=== PATIENT | female | born 1990 | race Caucasian/White ===

== ENCOUNTER 2020-06-27 10:29 | Outpatient (CLI) | payer BC ==
[2020-06-27 11:19] VITALS: BP 138/92; PULSE 109; RESP 16; TEMP 99.5
[2020-06-27 11:23] LABS: Appearance,Urine Cloudy (Clear); Bacteria,Urine Rare /hpf; Bilirubin,Urine Negative (Negative); Blood,Urine Negative (Negative); Color,Urine Yellow; Glucose,Urine (UA) Negative (Negative); Ketones,Urine Negative (Negative); Leukocyte Esterase,Urine Large (Negative); Mucus,Urine Rare /hpf; Nitrite,Urine Negative (Negative); Protein,Urine Negative (Negative); Specific Gravity,Urine 1.012 (1.001-1.035); Squamous Epithelial Cell,Urine 2 /hpf (0-4); Urobilinogen,Urine <2.0 mg/dL (<2.0); WBC,Urine 6 /hpf (0-5)
[2020-06-27 11:53] LABS: Basophils % (A) 0 %; Eosinophils # (A) 0.3 k/uL (0-0.7); Eosinophils % (A) 2 %; HCT 32.4 % (34.0-46.0); HGB 10.9 gm/dL (11.4-16.0); Lymphocytes # (A) 1.7 k/uL (1.0-4.8); Lymphocytes % (A) 13 %; MCH 31.1 pg (25.0-35.0); MCHC 33.7 g/dL (31.0-37.0); MCV 92.2 fL (80.0-100.0); Mean Platelet Volume 9.3; Monocytes # (A) 0.4 k/uL (0-1.0); Monocytes % (A) 3 %; Neutrophils # (A) 10.3 k/uL (1.3-7.7); Neutrophils % (A) 80 %; Platelet Count 182 k/uL (150-450); RBC 3.51 m/uL (3.80-5.40); RDW 13.6 % (11.5-15.5); WBC 12.9 k/uL (3.8-10.6)
[2020-06-27 12:17] LABS: ALT 11 U/L (4-34); AST 15 U/L (14-36); African American GFR (CKD) >90 (>60 ml/min/1.73 sqM); Blood Urea Nitrogen 5 mg/dL (7-17); LDH 293 U/L (313-618); Non-African American GFR(CKD) >90 (>60 ml/min/1.73 sqM); Uric Acid 4.5 mg/dL (3.7-7.4)
[2020-06-27 13:16] LABS: Creatinine,Urine Random 84.1 mg/dL; Protein/Creatinine Ratio,Urine 0.321
--- NOTE | 2020-08-15 15:07 | P.MSEPDOC ---
Presenting Problems - Arrival Data Date of Arrival on Unit: 06/27/20 Time of Arrival on Unit: 10:29 Mode of Transport: Ambulatory - Complaint OB-Reason for Admission/Chief Complaint: PIH Medical History - Information : 1 Para: 0 Term: 0 : 0 Abortions: Spontaneous or Elective: 0 Number of Living Children: 0 - Gestational Age Gestational Age by DEIRDRE (wks/days): 36 Weeks and 0 Days - History Complications: Chronic HTN Review of Systems - Review of Systems Constitutional: No problems Breast: No problems ENT: No problems Cardiovascular: No problems Respiratory: No problems Gastrointestinal: No problems Genitourinary: No problems Musculoskeletal: No problems Neurological: No problems Skin: No problems Vital Signs - Temperature Temperature: 99.5 F Temperature Source: Temporal Artery Scan - Pulse Right Sitting Brachial Pulse Rate: 109 Pulse Assessment Method: Automatic Cuff - Respirations Respiratory Rate: 16 Oxygen Delivery Method: Room Air O2 Sat by Pulse Oximetry: 97 - Blood Pressure Right Arm Sitting Blood Pressure: 138/92 Blood Pressure Mean: 107 Blood Pressure Source: Automatic Cuff Medical Screen Scoring (Pre) - Cervical Exam Dilation: Exam Deferred Effacement: Exam Deferred Membranes: Intact - Uterine Contractions Frequency: N/A Duration: N/A Intensity: N/A - Maternal Vital Signs Maternal Temperature: N/A Maternal Blood Pressure: Diastolic > 89 = 1 Signs of Preeclampsia: N/A Maternal Respirations: N/A - Maternal Trauma Maternal Trauma: N/A - Assessment - Baby A Baseline FHR: 125 Heart Rate - NICHD Category: Category I (Normal) = 0 NST: Reactive Position: N/A Station: N/A - Total Score - Baby A Total Score - Baby A: 1 - Total Score - Baby B Total Score - Baby B: 1 - Total Score - Baby C Total Score - Baby C: 1 - Level of Risk - Baby A Level of Risk - Baby A: Low (0-5) - Level of Risk - Baby B Level of Risk - Baby B: Low (0-5) - Level of Risk - Baby C Level of Risk - Baby C: Low (0-5) Disposition - Disposition OB Disposition: Triage I agree with the RN Medical Screening Exam: Yes Physician's MSE Comment: Patient was not seen or examined by myself Case reviewed; plan agreed upon as documented in EMR&OBIX.: Yes Diagnosis: GESTATIONAL HTN W/O SIGNIFICANT PROTEINURIA, THIRD TRIMESTER
== END 2020-06-27 13:38 | disposition home or self-care (01) ==
LOC: FBPOP 10:29
PROVIDERS: ATTEND Obstetrics & Gynecology Obstetrics
DX: O13.3 Gestational [pregnancy-induced] hypertension without significant proteinuria, third trimester (principal); Z3A.36 36 weeks gestation of pregnancy
CPT/HCPCS: 59025; 81001; 82565; 82570; 83615; 84156; 84450; 84460; 84520; 84550; 85025

== ENCOUNTER 2020-07-03 15:19 | Inpatient (IN) | payer BC ==
[2020-07-03 15:58] LABS: Basophils # (A) 0.1 k/uL (0-0.2); Basophils % (A) 1 %; Eosinophils # (A) 0.4 k/uL (0-0.7); Eosinophils % (A) 2 %; HCT 34.1 % (34.0-46.0); HGB 11.9 gm/dL (11.4-16.0); Lymphocytes # (A) 1.8 k/uL (1.0-4.8); Lymphocytes % (A) 12 %; MCH 31.8 pg (25.0-35.0); MCHC 34.9 g/dL (31.0-37.0); Mean Platelet Volume 10.3; Monocytes # (A) 0.6 k/uL (0-1.0); Monocytes % (A) 4 %; Neutrophils % (A) 80 %; Platelet Count 176 k/uL (150-450); RBC 3.75 m/uL (3.80-5.40)
[2020-07-03 16:06] LABS: ALT 9 U/L (4-34); AST 14 U/L (14-36); African American GFR (CKD) >90 (>60 ml/min/1.73 sqM); Blood Urea Nitrogen 6 mg/dL (7-17); LDH 295 U/L (313-618); Non-African American GFR(CKD) >90 (>60 ml/min/1.73 sqM); Uric Acid 4.2 mg/dL (3.7-7.4)
[2020-07-03 16:17] LABS: INR 0.9 (<1.2); Prothrombin Time 9.6 sec (9.0-12.0)
[2020-07-03 16:19] LABS: Partial Thromboplastin Time 21.8 sec (22.0-30.0)
[2020-07-03 16:31] LABS: Protein/Creatinine Ratio,Urine 0.377
[2020-07-03] MEDS ORDERED: miSOPROStoL 25 MCG TAB VAGINAL PRN (16:46)
[2020-07-03 17:15] LABS: Appearance,Urine Cloudy (Clear); Bacteria,Urine Rare /hpf; Bilirubin,Urine Negative (Negative); Blood,Urine Trace (Negative); Color,Urine Light Yellow; Glucose,Urine (UA) Negative (Negative); Hyaline Casts,Urine 1 /lpf (0-2); Ketones,Urine Negative (Negative); Leukocyte Esterase,Urine Large (Negative); Mucus,Urine Rare /hpf; Nitrite,Urine Negative (Negative); PH, Urine 6.5 (5.0-8.0); Protein,Urine Trace (Negative); RBC,Urine 9 /hpf (0-5); Specific Gravity,Urine 1.011 (1.001-1.035); Squamous Epithelial Cell,Urine 4 /hpf (0-4); Urobilinogen,Urine <2.0 mg/dL (<2.0); WBC,Urine 18 /hpf (0-5)
[2020-07-03] MEDS ORDERED: DINOPROSTONE 10 MG INSERT.ER VAGINAL ONE (17:15)
--- NOTE | 2020-07-03 17:38 | P.HPOB ---
History of Present Illness H&P Date: 07/03/20 Chief Complaint: IUP @ 36 6/7, chronic htn This is a 29-year-old 1 para 0 at 36-6/7 weeks that presented to labor and delivery for routine care. Blood pressure in the office was noted to be 140s over 90s. Patient has been receiving routine care with a diagnosis of chronic hypertension. Patient has been followed closely with testing and growth ultrasounds. Last growth ultrasound was done on June 26 revealing a fetus of 6 lbs. 11 oz. Patient did have preeclampsia labs done that were normal in nature on 06/30 exception being her urine protein creatinine ratio was elevated 0.3. She has been taking labetalol 200 mg twice daily throughout the . Patient denies headaches or abdominal pain. She notes good movement and notes an occasional contraction. She denies vaginal bleeding or loss of fluid at this time. On bloodwork this patient has a blood type of O+, rubella status nonimmune, hepatitis B surface antigen negative, RPR nonreactive, HIV negative, she is group beta strep positive. Review of Systems Constitutional: Denies chills, Denies fatigue, Denies fever Ears, nose, mouth and throat: Denies headache Cardiovascular: Reports leg edema Respiratory: Denies dyspnea Gastrointestinal: Denies constipation, Denies diarrhea, Denies nausea, Denies vomiting Genitourinary: Reports Past Medical History History of Any Multi-Drug Resistant Organisms: None Reported Smoking Status: Never smoker Medications and Allergies Home Medications Medication Instructions Recorded Confirmed Type Labetalol [Trandate] 200 mg PO BID 06/27/20 07/03/20 History Loratadine [Claritin] 10 mg PO DAILY 06/27/20 07/03/20 History Pnv No.95/Ferrous Fum/Folic AC 1 each PO DAILY 07/03/20 07/03/20 History [ Multivitamin Tablet] Allergies Allergy/AdvReac Type Severity Reaction Status Date / Time No Known Allergies Allergy Verified 07/03/20 15:26 Exam Osteopathic Statement: *. No significant issues noted on an osteopathic structural exam other than those noted in the History and Physical/Consult. Vital Signs Temp Pulse Resp BP Pulse Ox 07/03/20 15:35 97.9 F 97 15 138/95 98 Intake and Output 07/03/20 07/03/20 07/03/20 06:59 14:59 22:59 Other: Weight 90.174 kg Targeted physical exam is performed in this date and transit operator a well-nourished well-developed female in no acute distress, breathing is noted to be nonlabored, heart has regular rate and rhythm, abdomen is gravid and appropriate for gestational age, on cervical exam she is / Cervidil is placed at this time. heart tones returned be category 1 and she is mani irregularly. Results Result Diagrams: 07/03/20 15:46 07/03/20 15:46 Abnormal Lab Results - Last 24 Hours (Table) 07/03/20 07/03/20 07/03/20 Range/Units 15:46 15:46 15:46 WBC 15.0 H (3.8-10.6) k/uL RBC 3.75 L (3.80-5.40) m/uL Neutrophils # 12.0 H (1.3-7.7) k/uL APTT 21.8 L (22.0-30.0) sec Fibrinogen 604 H (200-500) mg/dL BUN 6 L (7-17) mg/dL Lactate Dehydrogenase 295 L (313-618) U/L Urine Appearance (Clear) Urine Protein (Negative) Urine Blood (Negative) Ur Leukocyte Esterase (Negative) Urine RBC (0-5) /hpf Urine WBC (0-5) /hpf Urine Bacteria (None) /hpf Urine Mucus (None) /hpf 07/03/20 Range/Units 16:16 WBC (3.8-10.6) k/uL RBC (3.80-5.40) m/uL Neutrophils # (1.3-7.7) k/uL APTT (22.0-30.0) sec Fibrinogen (200-500) mg/dL BUN (7-17) mg/dL Lactate Dehydrogenase (313-618) U/L Urine Appearance Cloudy H (Clear) Urine Protein Trace H (Negative) Urine Blood Trace H (Negative) Ur Leukocyte Esterase Large H (Negative) Urine RBC 9 H (0-5) /hpf Urine WBC 18 H (0-5) /hpf Urine Bacteria Rare H (None) /hpf Urine Mucus Rare H (None) /hpf Assessment and Plan (1) 36 to 37 weeks gestation of Current Visit: Yes Status: Acute Code(s): BYY2886 - SNOMED Code(s): 768528336 (2) Chronic hypertension affecting Current Visit: Yes Status: Acute Code(s): O10.919 - UNSP PRE-EXISTING HTN COMP , UNSP TRIMESTER SNOMED Code(s): 31525647 (3) Positive GBS test Current Visit: Yes Status: Acute Code(s): B95.1 - STREPTOCOCCUS, GROUP B, CAUSING DISEASES CLASSD ELSR SNOMED Code(s): 848091092 Plan: This is a 29-year-old 1 para 0 with known chronic hypertension that presents to labor and delivery at 36-6/7 weeks secondary to elevated blood pressures noted in the office. Patient denies symptoms of preeclampsia. Negative preeclampsia labs are appreciated with an elevated protein creatinine ratio of 0.3. Patient is admitted for Cervidil induction of labor. Patient is counseled on options of analgesia including Stadol and epidural. we'll plan to hold Cervidil at 5 AM, and start Pitocin soon afterwards. Patient states understanding of the plan and all questions are answered. She will continue to take her oral labetalol throughout labor.
[2020-07-03] MEDS: BUTORPHANOL 1 MG/ML 1 ML VIAL IV PRN (22:24)
[2020-07-03] MEDS: LABETALOL 200 MG TAB PO SCH (22:28)
[2020-07-03] MEDS: LACTATED RINGERS 1,000 ML IV SCH (22:38)
[2020-07-04] MEDS ORDERED: AMPICILLIN 2,000 MG in SODIUM CHLORIDE 0.9% 100 ML IVPB ONE ×2
[2020-07-04] MEDS: BUTORPHANOL 1 MG/ML 1 ML VIAL IV PRN (01:35)
[2020-07-04] MEDS ORDERED: TERBUTALINE 1 MG/ML VIAL SQ PRN (03:39)
[2020-07-04] MEDS ORDERED: OXYTOCIN 10 UNIT/ML 1 ML VIAL IM PRN (03:39)
[2020-07-04] MEDS ORDERED: LIDOCAINE 0.5% (PF) 5 MG/ML (50 ML SDV) SQ PRN (03:39)
[2020-07-04] MEDS ORDERED: CARBOPROST TROMETHAMINE 250 MCG/ML 1 ML AMP IM PRN (03:39)
[2020-07-04] MEDS ORDERED: METHYLERGONOVINE 0.2 MG/ML 1 ML AMP IM PRN (03:39)
[2020-07-04] MEDS ORDERED: LACTATED RINGERS 1,000 ML IV SCH (03:45)
[2020-07-04] MEDS: AMPICILLIN 1,000 MG in SODIUM CHLORIDE 0.9% 50 ML IVPB SCH ×4 (04:04→18:16)
[2020-07-04] MEDS: OXYTOCIN 30 UNITS/500 ML NS 30 UNIT in SALINE 1 500ML.BAG IV SCH ×2 (06:20→17:59)
[2020-07-04] MEDS: LACTATED RINGERS 1,000 ML IV SCH ×5 (07:54→23:37)
[2020-07-04] MEDS: LABETALOL 200 MG TAB PO SCH ×2 (08:59→20:05)
[2020-07-04] MEDS: PRENATAL VIT-IRON-FOLIC ACID 1 EACH CAP PO SCH (11:32)
[2020-07-04] MEDS ORDERED: CITRIC ACID-SODIUM CITRATE 15 ML CUP PO ONE (14:55)
[2020-07-04] MEDS ORDERED: OXYTOCIN 10 UNIT/ML 1 ML VIAL ONE (15:14)
[2020-07-04] MEDS ORDERED: KETOROLAC 15 MG/ML 1 ML VIAL ONE (15:14)
[2020-07-04] MEDS ORDERED: ONDANSETRON 4 MG/2 ML VIAL ONE (15:14)
[2020-07-04] MEDS ORDERED: MORPHINE SULFATE (PF) 0.3 MG/0.3 ML SYR ONE (15:14)
[2020-07-04] MEDS ORDERED: DEXAMETHASONE SOD PHOSPHATE 10 MG/ML 1 ML VIAL ONE (15:14)
[2020-07-04] MEDS ORDERED: diphenhydrAMINE 50 MG/ML 1 ML VIAL ONE (15:14)
[2020-07-04] MEDS ORDERED: NALOXONE 0.4 MG/ML 1 ML VIAL IV PRN ×2 (15:58→16:12)
[2020-07-04] MEDS ORDERED: HYDROmorphone 0.5 MG/0.5 ML SYRINGE IVP PRN (15:58)
[2020-07-04] MEDS ORDERED: KETOROLAC 15 MG/ML 1 ML VIAL IVP PRN (15:58)
[2020-07-04] MEDS ORDERED: ONDANSETRON 4 MG/2 ML VIAL IVP PRN ×2 (15:58→16:12)
[2020-07-04] MEDS ORDERED: diphenhydrAMINE 50 MG/ML 1 ML VIAL IVP PRN ×3 (15:58→16:12)
[2020-07-04] MEDS ORDERED: ACETAMINOPHEN IV (For NPO) 1,000 MG in EMPTY BAG 1 BAG IVPB ONE (16:12)
[2020-07-04] MEDS ORDERED: HYDROcodone/APAP 5-325MG 1 EACH TAB PO PRN (16:12)
[2020-07-04] MEDS ORDERED: diphenhydrAMINE 25 MG CAP PO PRN (16:12)
[2020-07-04] MEDS ORDERED: diphenhydrAMINE 50 MG CAP PO PRN (16:12)
[2020-07-04] MEDS ORDERED: ZOLPIDEM 5 MG TAB PO PRN (16:12)
[2020-07-04] MEDS ORDERED: METOCLOPRAMIDE 5 MG/ML 2 ML VIAL IVP PRN (16:12)
[2020-07-04] MEDS ORDERED: SIMETHICONE 80 MG CHEWABLE PO PRN (16:12)
[2020-07-04] MEDS ORDERED: ACETAMINOPHEN TAB 325 MG TAB PO PRN (16:12)
--- NOTE | 2020-07-04 16:12 | P.OP ---
Date of Procedure: 07/04/20 Preoperative Diagnosis: IUP at 37-0/7 weeks, chronic hypertension, arrest of descent and dilation Postoperative Diagnosis: Same Procedure(s) Performed: Primary low transverse section Anesthesia: spinal Surgeon: Carolina Krishna Dipper Machine Operator #1: Lady Morin Estimated Blood Loss (ml): 200 IV fluids (ml): 500 Urine output (ml): 100 Pathology: other (Placenta) Condition: stable Disposition: observation Indications for Procedure: This 29-year-old 1 para 0 at 37 0/7 weeks presented to labor and delivery for induction of labor secondary to chronic hypertension. Patient's blood pressures were noted to be 140s 150s over 90s to 100s. Patient has been labetalol throughout this . Patient made minimal change with Cervidil overnight and Pitocin augmentation of labor was begun. Patient did not make cervical change throughout the day, amniotomy was performed in the morning with noted clear fluid. No descent into the pelvis despite Pitocin augmentation of labor this morning. Around 1400 patient elected primary . Operative Findings: Arcuate shaped uterus, liveborn male infant delivered via vacuum assist at 1539, weight of 6 lbs. 9 oz. Description of Procedure: Patient was taken to the operating suite where spinal anesthesia was found to be adequate by the anesthesia department. She was then prepped and draped in normal sterile fashion in the dorsal supine position. A Pfannenstiel skin incision was made with the scalpel and carried through the underlying layer of fascia. The fascia was then incised in the midline and extended laterally. The superior aspect the fascial incision was then grasped leatha clamps, elevated and underlying rectus muscle was dissected off sharply. The inferior aspect the fas cial incision was then grasped leatha clamps, elevated and underlying rectus muscles dissected off sharply. Rectus muscles were in the midline the peritoneum was identified and entered. The bladder blade was inserted into the pelvis. The vesicouterine peritoneum was identified and a bladder flap was created using sharp and blunt dissection. A scalpel was used to make a hysterotomy incision the uterus was entered and the fetus was noted to be in an occiput transverse presentation, vacuum assist was used to deliver fetus the umbilical cord was doubly clamped and cut and the was handed off to awaiting RN. Cord blood was then taken. The placenta was then delivered manually intact with three-vessel cord being noted. The uterus is noted to be arcuate in shape. The uterus was delivered from the abdomen. The uterine incision was then closed with 0 Vicryl in a running locked fashion. A second inverting suture was used to close the uterus. A small amount of bleeding was noted on the left-hand side of the uterine incision therefore a [id number] suture used to obtain hemostasis. The gutters were then cleared of all clots and debris and the uterus was returned the abdomen. The hysterotomy incision was inspected and found to be hemostatic. Rectus muscles were then loosely reapproximated along with the peritoneum. The fascia was then closed with 0 Vicryl in a running fashion from one lateral edge the midline and the other lateral edge the midline. The subcutaneous tissue was then irrigated and found to be hemostatic. The subcu tissues then closed with 3-0 Vicryl. The skin was then closed with 4-0 Vicryl in a subcuticular fashion. Suture strips and sterile dressings were applied. All counts were noted be correct 2 at the end of the procedure. Patient and infant tolerated delivery well and are resting comfortably.
[2020-07-04] MEDS ORDERED: IBUPROFEN IV 800 MG in SODIUM CHLORIDE 0.9% 250 ML IV ONE (16:14)
[2020-07-04] MEDS ORDERED: OXYTOCIN 30 UNITS/500 ML NS 30 UNIT in SALINE 1 500ML.BAG IV SCH (16:15)
[2020-07-04] MEDS: SENNOSIDES-DOCUSATE SODIUM 1 EACH TAB PO SCH (20:05)
[2020-07-05] MEDS: LACTATED RINGERS 1,000 ML IV SCH ×2 (00:37→08:23)
[2020-07-05 08:02] LABS: Basophils % (A) 0 %; Eosinophils # (A) 0.1 k/uL (0-0.7); Eosinophils % (A) 1 %; HCT 29.5 % (34.0-46.0); HGB 10.4 gm/dL (11.4-16.0); Lymphocytes # (A) 2.1 k/uL (1.0-4.8); Lymphocytes % (A) 12 %; MCH 32.1 pg (25.0-35.0); MCHC 35.4 g/dL (31.0-37.0); MCV 90.8 fL (80.0-100.0); Mean Platelet Volume 11.1; Monocytes # (A) 0.8 k/uL (0-1.0); Monocytes % (A) 4 %; Neutrophils # (A) 14.5 k/uL (1.3-7.7); Neutrophils % (A) 82 %; Platelet Count 177 k/uL (150-450); RBC 3.25 m/uL (3.80-5.40); RDW 12.9 % (11.5-15.5); WBC 17.6 k/uL (3.8-10.6)
[2020-07-05] MEDS: SENNOSIDES-DOCUSATE SODIUM 1 EACH TAB PO SCH (08:23)
[2020-07-05] MEDS: LABETALOL 200 MG TAB PO SCH (08:23)
[2020-07-05 08:38] VITALS: PULSE 78; RESP 18
[2020-07-05] MEDS: IBUPROFEN 600 MG TAB PO PRN ×2 (09:21→16:27)
[2020-07-05] MEDS: PRENATAL VIT-IRON-FOLIC ACID 1 EACH CAP PO SCH (09:21)
--- NOTE | 2020-07-05 10:45 | P.PNOBGPC ---
Subjective - Subjective Principal diagnosis: Chronic hypertension, postop day 1 Patient reports: Reports appetite normal, Reports voiding normally, Reports pain well controlled, Reports ambulating normally, Denies dizzy ambulation, Denies nauseated : doing well, in NICU Objective - Vital Signs Latest vital signs: Vital Signs Temp Pulse Resp BP Pulse Ox 07/05/20 08:00 98.1 F 78 18 134/84 99 07/05/20 06:00 16 07/05/20 04:00 98.2 F 92 16 121/75 07/05/20 02:00 14 07/05/20 00:00 97.9 F 78 16 146/85 98 07/04/20 22:00 16 07/04/20 20:00 97.9 F 69 16 149/95 98 07/04/20 18:31 16 07/04/20 18:09 97.2 F L 65 16 140/99 99 07/04/20 17:39 62 18 142/91 100 07/04/20 17:09 69 18 131/82 98 07/04/20 16:58 18 97 07/04/20 16:54 69 18 131/82 98 07/04/20 16:39 75 18 137/84 97 07/04/20 16:24 72 18 138/72 97 07/04/20 16:09 97.0 F L 75 16 135/73 98 07/04/20 15:58 18 95 Intake and Output 07/04/20 07/05/20 07/05/20 22:59 06:59 14:59 Intake Total 11.65 Output Total 900 100 750 Balance -888.35 -100 -750 Intake: Intake, IV Titration 11.65 Amount Oxytocin 30 Units/500 ml 11.65 Ns 30 unit In Saline 1 500ml.bag @ Per Protocol IV .Q0M [facility] Rx#:[id number] Output: Urine 900 100 750 Uretheral (Elizondo) 100 Other: # Voids 3 1 - Exam Lungs: bilateral: normal Extremities: Present: normal, edema (Trace). Absent: tenderness Abdomen: Present: normal appearance, soft Incision: Present: normal, dry, intact Uterus: Present: normal - Labs Labs: Abnormal Lab Results - Last 24 Hours (Table) 07/05/20 Range/Units 07:51 WBC 17.6 H (3.8-10.6) k/uL RBC 3.25 L (3.80-5.40) m/uL Hgb 10.4 L (11.4-16.0) gm/dL Hct 29.5 L (34.0-46.0) % Neutrophils # 14.5 H (1.3-7.7) k/uL Assessment and Plan (1) 36 to 37 weeks gestation of Current Visit: Yes Status: Acute Code(s): VGF8119 - SNOMED Code(s): 737284621 (2) Chronic hypertension affecting Current Visit: Yes Status: Acute Code(s): O10.919 - UNSP PRE-EXISTING HTN COMP , UNSP TRIMESTER SNOMED Code(s): 04716118 (3) Positive GBS test Current Visit: Yes Status: Acute Code(s): B95.1 - STREPTOCOCCUS, GROUP B, CAUSING DISEASES CLASSD ELSR SNOMED Code(s): 922659424 (4) S/P section Current Visit: Yes Status: Acute Code(s): Z98.891 - HISTORY OF UTERINE SCAR FROM PREVIOUS SURGERY SNOMED Code(s): 810985919 (5) Failure to progress in first stage of labor Current Visit: Yes Status: Acute Code(s): TDC7103 - SNOMED Code(s): 925157702 Plan: 29-year-old 1 now para 1 woman postop day 1 status post primary low transverse section. Labetalol has been restarted on this morning. Her blood pressures were mainly 130s over 70s throughout the night. She is asymptomatic. Her pain is well-controlled with oral pain medications. is doing well in the nursery. Routine care.
[2020-07-05 12:50] VITALS: BP 130/66; TEMP 97.8
--- NOTE | 2020-07-05 19:15 | P.PN ---
Progress Note - Text Progress Note Date: 07/05/20 Postoperative day 1 status post section under spinal anesthesia, and i ntrathecal morphine given for postoperative analgesia, patient doing well, there is no anesthesia related complications, Patient had no headache, vital signs stable , Assessment and plan= postop day 1 status post , doing well there is no anesthesia related complication.
== END 2020-07-05 16:30 | disposition home or self-care (01) | DRG 788 ==
LOC: FBPOP 15:19 → 4FBP 16:36
PROVIDERS: ADMIT Obstetrics & Gynecology Obstetrics; ATTEND Obstetrics & Gynecology Obstetrics
PROC: 10D00Z1 Extraction of Products of Conception, Low, Open Approach (ICD-10-PCS; principal; 2020-07-04 15:14)
DX: O10.92 Unspecified pre-existing hypertension complicating childbirth (principal); Z37.0 Single live birth; O62.2 Other uterine inertia; O99.824 Streptococcus B carrier state complicating childbirth; Z79.899 Other long term (current) drug therapy; Z3A.37 37 weeks gestation of pregnancy
CPT/HCPCS: 59025; 81001; 82565; 82570; 83615; 84156; 84450; 84460; 84520; 84550; 85025; 85384; 85610; 85730; 86850; 86900; 86901; 88307; 99215

== ENCOUNTER 2022-03-08 08:06 | Inpatient (IN) | payer BC ==
[2022-03-08 08:25] VITALS: RESP 16
[2022-03-08] MEDS ORDERED: CITRIC ACID-SODIUM CITRATE 15 ML CUP PO ONE (08:45)
[2022-03-08 09:05] LABS: Basophils % (A) 0 %; Eosinophils # (A) 0.2 k/uL (0-0.7); Eosinophils % (A) 2 %; Lymphocytes # (A) 1.8 k/uL (1.0-4.8); Lymphocytes % (A) 15 %; MCHC 34.4 g/dL (31.0-37.0); Mean Platelet Volume 9.6; Monocytes # (A) 0.6 k/uL (0-1.0); Monocytes % (A) 5 %; Neutrophils # (A) 9.1 k/uL (1.3-7.7); Neutrophils % (A) 77 %; Platelet Count 187 k/uL (150-450); RBC 3.55 m/uL (3.80-5.40); RDW 13.1 % (11.5-15.5); WBC 11.9 k/uL (3.8-10.6)
[2022-03-08] MEDS ORDERED: LACTATED RINGERS 1,000 ML IV ONE (09:15)
[2022-03-08] MEDS: LACTATED RINGERS 1,000 ML IV SCH ×3 (09:16→20:10)
--- NOTE | 2022-03-08 09:35 | P.HPOB ---
History of Present Illness H&P Date: 03/08/22 Chief Complaint: IUP @ 38 6/7, h/o c section x 1, chronic HTN this is a 31-year-old 2 para 1001 at 38-6/7 weeks that presents for scheduled repeat section. Patient has been receiving routine care which has been complicated by chronic hypertension on labetalol. Patient has noted blood pressures 140s over 90s on 200 mg of labetalol twice daily. She has had multiple negative preeclampsia workups. Patient has been receiving routine care which has been normal. Today patient notes good movement she denies contractions vaginal bleeding or signs and symptoms of preeclampsia. Review of Systems Constitutional: Denies chills, Denies fatigue, Denies fever Ears, nose, mouth and throat: Denies headache Cardiovascular: Reports leg edema Respiratory: Denies dyspnea Gastrointestinal: Denies constipation, Denies diarrhea, Denies nausea, Denies vomiting Genitourinary: Reports Past Medical History Past Medical History: Hypertension History of Any Multi-Drug Resistant Organisms: None Reported Past Surgical History: No Surgical Hx Reported Past Anesthesia/Blood Transfusion Reactions: No Reported Reaction Past Psychological History: No Psychological Hx Reported Smoking Status: Never smoker - Past Family History Mother Family Medical History: No Reported History Medications and Allergies Home Medications Medication Instructions Recorded Confirmed Type Labetalol [Trandate] 200 mg PO BID 06/27/20 03/08/22 History Loratadine [Claritin] 10 mg PO DAILY 06/27/20 03/08/22 History Pnv No.95/Ferrous Fum/Folic AC 1 each PO DAILY 07/03/20 03/08/22 History [ Multivitamin Tablet] Allergies Allergy/AdvReac Type Severity Reaction Status Date / Time No Known Allergies Allergy Verified 07/03/20 15:26 Exam Osteopathic Statement: *. No significant issues noted on an osteopathic structural exam other than those noted in the History and Physical/Consult. Vital Signs Temp Pulse Resp BP Pulse Ox 03/08/22 08:11 98.0 F 117 H 16 133/76 98 Intake and Output 03/07/22 03/08/22 03/08/22 22:59 06:59 14:59 Other: Weight 88.451 kg targeted physical exam is performed in this date and telecommunications engineer a well-nourished well-developed female in no acute distress, breathing is nonlabored, heart has a regular rate and rhythm, abdomen is gravid and appropriate for gestational age, cervical exam is deferred. heart tones are noted to be category 1 and she is having a rare contraction. Results Result Diagrams: 03/08/22 08:42 Abnormal Lab Results - Last 24 Hours (Table) 03/08/22 Range/Units 08:42 WBC 11.9 H (3.8-10.6) k/uL RBC 3.55 L (3.80-5.40) m/uL Hgb 11.0 L (11.4-16.0) gm/dL Hct 32.0 L (34.0-46.0) % Neutrophils # 9.1 H (1.3-7.7) k/uL Assessment and Plan (1) Term Current Visit: Yes Status: Acute Code(s): Z34.90 - ENCNTR FOR SUPRVSN OF NORMAL , UNSP, UNSP TRIMESTER SNOMED Code(s): 87189306 (2) H/O section Current Visit: Yes Status: Acute Code(s): Z98.891 - HISTORY OF UTERINE SCAR FROM PREVIOUS SURGERY SNOMED Code(s): 211168506 (3) Family planning Current Visit: Yes Status: Acute Code(s): Z30.09 - ENCOUNTER FOR OT GENERAL CNSL AND ADVICE ON CONTRACEPTION SNOMED Code(s): 452708584 (4) Chronic hypertension affecting Current Visit: No Status: Acute Code(s): O10.919 - UNSP PRE-EXISTING HTN COMP , UNSP TRIMESTER SNOMED Code(s): 32622915 Plan: 31-year-old 2 para 1 at 38-6/7 weeks that presents for scheduled repeat section. Patient has a history of chronic hypertension well-controlled 130s over 80s throughout the , patient's blood pressures have been noted to be 140s over 90s over the last week. Patient has a negative workup for preeclampsia. Blood pressure this morning 133 over 80s. Patient desires permanent sterilization with tubal ligation in addition. Patient has been counseled on risks of surgery and failure rates of tubal ligation. She states understanding and wishes to proceed.
--- NOTE | 2022-03-08 10:50 | P.OP ---
Date of Procedure: 03/08/22 Preoperative Diagnosis: IUP at 38-6/7 weeks, chronic hypertension, history of 1, family status complete desires permanent sterilization Postoperative Diagnosis: same Procedure(s) Performed: repeat section with tubal ligation Anesthesia: spinal Surgeon: Carolina Krishna Tank Builder #1: Lady Morin Estimated Blood Loss (ml): 516 IV fluids (ml): 700 Urine output (ml): 150 Pathology: other (placenta) Condition: stable Disposition: observation Indications for Procedure: 31-year-old at 38 and 6 with known chronic hypertension. Patient is a prior history of 1 secondary to arrest of descent and dilation. Patient elects repeat section. Patient states she is done with childbearing and permanent sterilization therefore tubal ligation will be performed as well Operative Findings: normal uterus tubes and ovaries were appreciated, viable male delivered at 1020, weight of 8 lbs. 4 oz., Apgars of 5, 9 and 9 at 1,5 and 10 minutes respectively Description of Procedure: patient was taken back to every suite where spinal anesthesia was found be adequate by the anesthesia department. She was prepped and draped in the normal sterile fashion in the dorsal supine position. A Pfannenstiel skin incision was made the scalpel and carried through to the underlying layer of fascia. The fascia was then incised in the midline and the incision was extended laterally. The superior aspect of the fascial incision was then grasped leatha clamps, elevated and underlying rectus muscles dissected off sharply. Attention then turned to the inferior aspect of the fascial incision which was grasped leatha clamps, elevated and underlying rectus muscles dissected off sharply. Rectus muscles were in the midline. She was identified and entered. The bladder blade was then inserted into the pelvis and the vesicouterine peritoneum was identified. A bladder flap was then created using sharp and blunt dissection. A scalpel is then used to perform a hysterotomy incision clear fluid was obtained the infant was encountered in a vertex presentation. The infant was then delivered in the usual fashion. The infant was then handed to awaiting RN after the umbilical cord was doubly clamped and cut. Spontaneous cry was noted. Cord blood was then taken. Placenta was delivered manually and the uterus was exteriorized and cleared of all clots and debris. The hysterotomy incision was closed 0 Vicryl in a running locked fashion. Hemostasis was appreciated. The Filshie clip applicator was then used to occlude bilateral fallopian tubes according to [id number] armor crewman's instruction. Bilateral occlusion was appreciated. Hemostasis of tubal sites was noted. Hysterotomy incision was inspected and found be hemostatic. The uterus was then returned to the abdomen. The gutters were cleared of all clots and debris. Hysterotomy incision was inspected hemostasis was appreciated. The peritoneum was then loosely reapproximated. The fascia was then closed with 0 Vicryl in a running fashion from one lateral edge the midline and the other lateral edge the midline. Subcutaneous tissue was irrigated and any points of bleeding were made hemostatic with the Bovie. The subcutaneous tissue was then closed with 3-0 Vicryl in a running fashion. The skin was closed with 4-0 Vicryl in a subcuticular fashion. Steri-Strips and sterile dressings were applied. All counts were noted to be correct 2 at the end of the delivery. Patient and infant tolerated delivery well and are resting comfortably.
[2022-03-08] MEDS ORDERED: ZOLPIDEM 5 MG TAB PO PRN (11:07)
[2022-03-08] MEDS ORDERED: diphenhydrAMINE 50 MG CAP PO PRN (11:07)
[2022-03-08] MEDS ORDERED: ACETAMINOPHEN IV (For NPO) 1,000 MG in EMPTY BAG 1 BAG IVPB PRN (11:07)
[2022-03-08] MEDS ORDERED: LACTATED RINGERS 1,000 ML IV SCH (11:07)
[2022-03-08] MEDS ORDERED: OXYTOCIN 30 UNITS/500 ML NS 30 UNIT in SALINE 1 500ML.BAG IV SCH (11:07)
[2022-03-08] MEDS ORDERED: diphenhydrAMINE 25 MG CAP PO PRN (11:07)
[2022-03-08] MEDS ORDERED: ONDANSETRON 4 MG/2 ML VIAL IVP PRN (11:07)
[2022-03-08] MEDS ORDERED: METOCLOPRAMIDE 5 MG/ML 2 ML VIAL IVP PRN (11:07)
[2022-03-08] MEDS ORDERED: diphenhydrAMINE 50 MG/ML 1 ML VIAL IVP PRN ×2 (11:07)
[2022-03-08] MEDS ORDERED: NALOXONE 0.4 MG/ML 1 ML VIAL IV PRN (11:07)
[2022-03-08] MEDS ORDERED: SIMETHICONE 80 MG CHEWABLE PO PRN (11:07)
[2022-03-08] MEDS: ACETAMINOPHEN TAB 500 MG TAB PO SCH ×2 (12:48→19:06)
[2022-03-08 13:11] LABS: Glucose,Whole Blood 44 mg/dL (70-110)
[2022-03-08] MEDS ORDERED: MEASLES-MUMPS-RUBELLA VACC/PF 12,500 UNIT/0.5 ML VIAL SQ ONE (14:45)
[2022-03-08] MEDS: IBUPROFEN 600 MG TAB PO SCH (16:34)
[2022-03-08] MEDS ORDERED: IBUPROFEN IV 800 MG in SODIUM CHLORIDE 0.9% 250 ML IV PRN (18:00)
[2022-03-08] MEDS: LABETALOL 200 MG TAB PO SCH (20:06)
[2022-03-08] MEDS: SENNOSIDES-DOCUSATE SODIUM 1 EACH TAB PO SCH (21:48)
[2022-03-09] MEDS: ACETAMINOPHEN TAB 500 MG TAB PO SCH ×4 (02:30→18:03)
[2022-03-09] MEDS: IBUPROFEN 600 MG TAB PO SCH ×5 (02:48→21:01)
[2022-03-09] MEDS: SENNOSIDES-DOCUSATE SODIUM 1 EACH TAB PO SCH ×2 (08:12→17:18)
[2022-03-09] MEDS: PRENATAL VIT-IRON-FOLIC ACID 1 EACH TABLET PO SCH (08:21)
--- NOTE | 2022-03-09 08:29 | P.PNOBGPC ---
Subjective - Subjective Principal diagnosis: postop day 1, repeat section with tubal ligation Interval history: patient is doing well this morning. She is ambulating and voiding without difficulty. She is tolerating a regular diet, without nausea or vomiting. Her lochia is minimal. She states pain is well-controlled. Patient reports: Reports appetite normal, Reports voiding normally, Reports pain well controlled, Reports ambulating normally Tucker: doing well (in special care nursery on oxygen) Objective - Vital Signs Latest vital signs: Vital Signs Temp Pulse Resp BP Pulse Ox 03/09/22 04:00 98.0 F 86 16 109/70 96 03/09/22 00:00 97.5 F L 84 16 131/89 100 03/08/22 20:00 98.1 F 69 16 143/88 97 03/08/22 16:00 97.5 F L 65 16 137/86 96 03/08/22 13:08 97.1 F L 65 16 153/89 98 03/08/22 12:20 66 16 152/88 99 03/08/22 11:50 97.1 F L 60 16 134/85 97 03/08/22 11:35 66 16 131/97 96 03/08/22 11:20 64 16 146/86 97 03/08/22 11:05 76 16 140/84 98 03/08/22 10:49 97.0 F L 70 16 120/57 97 Intake and Output 03/08/22 03/09/22 03/09/22 22:59 06:59 14:59 Output Total 550 600 Balance -550 -600 Output: Urine 550 600 Uretheral (Elizondo) 550 Other: # Voids 1 - Exam Extremities: Present: normal, edema Abdomen: Present: normal appearance, soft Incision: Present: normal, dry Uterus: Present: normal, firm - Labs Labs: Abnormal Lab Results - Last 24 Hours (Table) 03/08/22 03/08/22 Range/Units 08:42 13:02 WBC 11.9 H (3.8-10.6) k/uL RBC 3.55 L (3.80-5.40) m/uL Hgb 11.0 L (11.4-16.0) gm/dL Hct 32.0 L (34.0-46.0) % Neutrophils # 9.1 H (1.3-7.7) k/uL POC Glucose (mg/dL) 44 L (70-110) mg/dL Assessment and Plan (1) Term Current Visit: Yes Status: Acute Code(s): Z34.90 - ENCNTR FOR SUPRVSN OF NORMAL , UNSP, UNSP TRIMESTER SNOMED Code(s): 39695958 (2) H/O section Current Visit: Yes Status: Acute Code(s): Z98.891 - HISTORY OF UTERINE SCAR FROM PREVIOUS SURGERY SNOMED Code(s): 025234756 (3) Family planning Current Visit: Yes Status: Acute Code(s): Z30.09 - ENCOUNTER FOR OT GENERAL CNSL AND ADVICE ON CONTRACEPTION SNOMED Code(s): 608119807 (4) Chronic hypertension affecting Current Visit: No Status: Acute Code(s): O10.919 - UNSP PRE-EXISTING HTN COMP , UNSP TRIMESTER SNOMED Code(s): 60033526 Plan: 31-year-old G2 now P2 status post repeat section with tubal ligation. Patient is doing well postoperatively. remains in special care nursery on high flow oxygen. Plan is to recheck his blood gas this morning and possibly start weaning off of oxygen. Plan to continue routine postoperative care.
[2022-03-09] MEDS: LABETALOL 200 MG TAB PO SCH ×2 (08:54→21:01)
[2022-03-09 09:03] LABS: Basophils # (A) 0.1 k/uL (0-0.2); Basophils % (A) 0 %; Eosinophils # (A) 0.2 k/uL (0-0.7); Eosinophils % (A) 1 %; HGB 11.8 gm/dL (11.4-16.0); Lymphocytes # (A) 1.7 k/uL (1.0-4.8); Lymphocytes % (A) 13 %; MCH 30.3 pg (25.0-35.0); MCHC 32.7 g/dL (31.0-37.0); MCV 92.7 fL (80.0-100.0); Mean Platelet Volume 9.1; Monocytes # (A) 0.4 k/uL (0-1.0); Monocytes % (A) 3 %; Neutrophils # (A) 10.5 k/uL (1.3-7.7); Neutrophils % (A) 81 %; Platelet Count 221 k/uL (150-450); RBC 3.89 m/uL (3.80-5.40); RDW 13.4 % (11.5-15.5)
[2022-03-10] MEDS: ACETAMINOPHEN TAB 500 MG TAB PO SCH ×5 (00:05→23:58)
[2022-03-10] MEDS: IBUPROFEN 600 MG TAB PO SCH ×4 (03:00→20:54)
[2022-03-10] MEDS: PRENATAL VIT-IRON-FOLIC ACID 1 EACH TABLET PO SCH (08:27)
[2022-03-10] MEDS: SENNOSIDES-DOCUSATE SODIUM 1 EACH TAB PO SCH ×2 (08:27→20:55)
--- NOTE | 2022-03-10 08:34 | P.PNOBGPC ---
Subjective - Subjective Principal diagnosis: Postop day 2, repeat section with tubal ligation Interval history: Patient is doing well overall. She is ambulating and voiding without difficulty. She does note some discomfort and has requested oxy IR 2 once yesterday and once this morning. Lochia is minimal. She is pumping as infant remains in special care nursery on high flow oxygen but doing well. She is tolerating a regular diet without nausea or vomiting. Patient reports: Reports appetite normal, Reports voiding normally, Reports pain well controlled, Reports ambulating normally [place]: doing well (In special care nursery oxygen needs are decreasing.) Objective - Vital Signs Latest vital signs: Vital Signs Temp Pulse Resp BP Pulse Ox 03/10/22 00:00 97.7 F 89 16 117/71 97 03/09/22 20:00 135/93 03/09/22 17:22 138/93 03/09/22 11:59 98.2 F 74 16 132/84 Intake and Output 03/09/22 03/10/22 03/10/22 22:59 06:59 14:59 Other: # Voids 1 1 - Exam Extremities: Present: normal, edema Abdomen: Present: normal appearance, soft Incision: Present: normal, dry, intact Uterus: Present: normal, firm - Labs Labs: Abnormal Lab Results - Last 24 Hours (Table) 03/09/22 Range/Units 08:41 WBC 13.0 H (3.8-10.6) k/uL Neutrophils # 10.5 H (1.3-7.7) k/uL Assessment and Plan (1) Term Current Visit: Yes Status: Acute Code(s): Z34.90 - ENCNTR FOR SUPRVSN OF NORMAL , UNSP, UNSP TRIMESTER SNOMED Code(s): 28691792 (2) H/O section Current Visit: Yes Status: Acute Code(s): Z98.891 - HISTORY OF UTERINE SCAR FROM PREVIOUS SURGERY SNOMED Code(s): 907291810 (3) Family planning Current Visit: Yes Status: Acute Code(s): Z30.09 - ENCOUNTER FOR OTH GENERAL CNSL AND ADVICE ON CONTRACEPTION SNOMED Code(s): 075103967 (4) Chronic hypertension affecting Current Visit: No Status: Acute Code(s): O10.919 - UNSP PRE-EXISTING HTN COMP , UNSP TRIMESTER SNOMED Code(s): 40552852 Plan: Patient is doing well. Blood pressure this morning 150s over 90s. We'll resume labetalol 100 mg twice daily. We'll monitor blood pressures through the day consider discharge home if blood pressures responded well to medication. Otherwise will continue to observe until tomorrow.
[2022-03-10] MEDS ORDERED: LABETALOL 100 MG TAB PO SCH (09:00)
[2022-03-10] MEDS ORDERED: LABETALOL 100 MG TAB PO STA (12:31)
[2022-03-10] MEDS: LABETALOL 200 MG TAB PO SCH (20:54)
[2022-03-11] MEDS: IBUPROFEN 600 MG TAB PO SCH ×3 (03:04→15:36)
[2022-03-11] MEDS: ACETAMINOPHEN TAB 500 MG TAB PO SCH ×2 (05:47→11:50)
--- NOTE | 2022-03-11 08:52 | P.DS ---
Providers Date of admission: 03/08/22 08:06 Expected date of discharge: 03/11/22 Attending physician: Carolina Krishna Primary care physician: Stated None - Discharge Diagnosis(es) (1) Term Current Visit: Yes Status: Acute (2) H/O section Current Visit: Yes Status: Acute (3) Family planning Current Visit: Yes Status: Acute (4) Chronic hypertension affecting Current Visit: No Status: Acute Hospital Course: This is a 31-year-old 2 now para 2 status post repeat . Patient was admitted to labor and delivery on 03/08 for scheduled repeat section with tubal ligation. Patient has a history of chronic hypertension is been on labetalol throughout the . Patient has had negative preeclamps ia workups on multiple occasions. Patient had an essentially uncomplicated . Patient underwent repeat section with tubal ligation. For full details on the please see the operative report. Patient delivered a viable male at 1020, weight of 8 lbs. 4 oz. Infant did report necessitate oxygen therapy and is currently in the nursery working on feeding. Oxygen therapy was discontinued. Patient is doing well postoperatively. She is ambulating and voiding without difficulty. She is tolerating regular diet without nausea or vomiting. She states her pain is we ll-controlled. She denies concerns. She would like discharge home. Patient Condition at Discharge: Good Plan - Discharge Summary Discharge Rx Participant: Yes New Discharge Prescriptions: No Action Loratadine [Claritin] 10 mg PO DAILY Labetalol [Trandate] 200 mg PO BID Pnv No.95/Ferrous Fum/Folic AC [ Multivitamin Tablet] 1 each PO DAILY Discharge Medication List Labetalol [Trandate] 200 mg PO BID 06/27/20 [History] Loratadine [Claritin] 10 mg PO DAILY 06/27/20 [History] Pnv No.95/Ferrous Fum/Folic AC [ Multivitamin Tablet] 1 each PO DAILY 07/03/20 [History] Follow up Appointment(s)/Referral(s): Carolina Krishna DO [Doctor of Osteopathic Medicine] - 2 Weeks Patient Instructions/Handouts: (DC), (GEN) Activity/Diet/Wound Care/Special Instructions: Patient will go back to elevate all dosing 200 mg in the morning 100 in the evening which is what she was on prior to . Patient is to monitor blood pressures at home and call with any concerns. Discharge Disposition: HOME SELF-CARE
[2022-03-11] MEDS: LABETALOL 200 MG TAB PO SCH (09:04)
[2022-03-11] MEDS: PRENATAL VIT-IRON-FOLIC ACID 1 EACH TABLET PO SCH (09:04)
[2022-03-11] MEDS: SENNOSIDES-DOCUSATE SODIUM 1 EACH TAB PO SCH (09:05)
[2022-03-11 11:50] VITALS: BP 129/80; PULSE 99; TEMP 97.3
--- NOTE | 2022-03-11 16:54 | P.PN ---
Progress Note - Text Progress Note Date: 03/09/22 (0001) Anesthesiology Anesthesia Postop day 1 Subjective: Status Post section with Duramorph. Patient seen and examined. Doing well without complaint. VAS 0. No nausea or vomiting. Mild pruritustolerable. Afebrile. Gross lower extremity strength intact. Without apparent anesthetic complications. Objective: Vital signs reviewed Heart: Regular Rate Lungs: Good chest excursion Abdomen: Appears nondistended Assessment: Status post with Duramorph postop day 1 Plan: Continue current care with your medical management. Anticipated and the Duramorph around midnight tonight, you may see increased pain needs around this time.
== END 2022-03-11 15:52 | disposition home or self-care (01) | DRG 784 ==
LOC: 4FBP 08:06
PROVIDERS: ADMIT Obstetrics & Gynecology Obstetrics; ATTEND Obstetrics & Gynecology Obstetrics
PROC: 0UL70CZ Occlusion of Bilateral Fallopian Tubes with Extraluminal Device, Open Approach (ICD-10-PCS; 2022-03-08)
PROC: 10D00Z1 Extraction of Products of Conception, Low, Open Approach (ICD-10-PCS; principal; 2022-03-08 10:00)
DX: O34.211 Maternal care for low transverse scar from previous cesarean delivery (principal); O10.92 Unspecified pre-existing hypertension complicating childbirth; O99.73 Diseases of the skin and subcutaneous tissue complicating the puerperium; L29.9 Pruritus, unspecified; Z30.2 Encounter for sterilization; Z37.0 Single live birth; Z3A.38 38 weeks gestation of pregnancy
CPT/HCPCS: 85025; 86850; 86900; 86901; 88307; 90707